=== PATIENT | female | born 1950 | race Caucasian/White ===

== ENCOUNTER 2021-07-27 09:28 | Outpatient (CLI) | payer MEDICARE | END 2021-07-27 09:29 | disposition home or self-care (01) | LOC: CSHMAMMO 09:28 | PROVIDERS: ATTEND Advanced Practice Midwife | DX: N64.52 Nipple discharge (principal) | CPT/HCPCS: 77066; G0279 ==

== ENCOUNTER 2022-03-24 10:08 | Outpatient (CLI) | payer MEDICARE ==
[2022-03-24 11:33] LABS: Hemoglobin 13.3 g/dL (12.0-15.5); Mean Corpuscular HGB CONC 33.2 g/dL (32.0-36.0); Mean Corpuscular Hemoglobin 32.3 pg (27.0-33.0); Mean Corpuscular Volume 97.3 fl (81.6-98.3); Platelet Count 443 10x3/uL (150-450); RBC Distribution Width 12.5 % (11.5-14.5); Red Blood Cell (RBC) Count 4.12 10x6/uL (3.90-5.03); White Blood Cell (WBC) Count 6.4 10x3/uL (3.5-10.5)
[2022-03-24 11:48] LABS: Anion Gap 13 mmol/L (10-20); BUN (Urea Nitrogen) 13 mg/dL (9.8-20.1); Calc. Creatinine Clearance 0 mL/min (70-130); Carbon Dioxide 29 mmol/L (23-31); Chloride 104 mmol/L (98-107); Estimated GFR 82; Glucose 93 mg/dL (80-115); Sodium 141 mmol/L (136-145)
== END 2022-03-24 10:09 | disposition home or self-care (01) ==
LOC: CSHLAB 10:08
PROVIDERS: ATTEND Otolaryngology Otolaryngic Allergy
DX: Z01.818 Encounter for other preprocedural examination (principal); Z20.822 Contact with and (suspected) exposure to COVID-19; G47.33 Obstructive sleep apnea (adult) (pediatric)
CPT/HCPCS: 80048; 85027; 87811; 93005; 93010

== ENCOUNTER 2022-03-29 05:58 | Day surgery (SDC) | payer MEDICARE ==
[2022-03-28 10:31] VITALS: BMI 29.9
[2022-03-29] MEDS ORDERED: Lidocaine 1% MPF 2 ML VIAL ONE (07:02)
[2022-03-29] MEDS ORDERED: PROPOFOL 20 ML ONE (07:53)
== END 2022-03-29 09:05 | disposition home or self-care (01) ==
LOC: CSHSDC 05:58
PROVIDERS: ATTEND Otolaryngology Otolaryngic Allergy
PROC: 4A1ZXQZ Monitoring of Sleep, External Approach (ICD-10-PCS; principal; 2022-03-29)
DX: G47.33 Obstructive sleep apnea (adult) (pediatric) (principal); Z79.899 Other long term (current) drug therapy; Z88.8 Allergy status to other drugs, medicaments and biological substances; Z20.822 Contact with and (suspected) exposure to COVID-19
CPT/HCPCS: J2704

== ENCOUNTER 2022-04-21 10:36 | Outpatient (CLI) | payer MEDICARE | END 2022-04-21 10:37 | disposition home or self-care (01) | LOC: CSHLAB 10:36 | PROVIDERS: ATTEND Otolaryngology Otolaryngic Allergy | DX: Z20.822 Contact with and (suspected) exposure to COVID-19 (principal); G47.33 Obstructive sleep apnea (adult) (pediatric) | CPT/HCPCS: 87811 ==

== ENCOUNTER 2022-04-26 07:33 | Day surgery (SDC) | payer MEDICARE ==
[2022-04-22 16:09] VITALS: BMI 29.9
[2022-04-26] MEDS ORDERED: Lidocaine 1% MPF 2 ML VIAL ONE (08:40)
[2022-04-26] MEDS ORDERED: Dexamethasone 20 MG/5 ML VIAL ONE (09:05)
[2022-04-26] MEDS ORDERED: Rocuronium Bromide 10 MG/ML (10ML VIAL) ONE (09:05)
[2022-04-26] MEDS ORDERED: Midazolam HCl 2 mg/2 ml Vial ONE (09:05)
[2022-04-26] MEDS ORDERED: Fentanyl 250 MCG/5 ML VIAL ONE (09:05)
[2022-04-26] MEDS ORDERED: Lidocaine 1% PF 5 ML VIAL ONE (09:05)
[2022-04-26] MEDS ORDERED: Ondansetron PF 4 MG/2 ML Vial ONE (09:05)
[2022-04-26] MEDS ORDERED: PROPOFOL 20 ML ONE ×2 (09:05→09:49)
[2022-04-26] MEDS ORDERED: EPINEPHrine 1 MG/ML AMP ONE (09:10)
[2022-04-26] MEDS ORDERED: CEFAZOLIN 1 GM VIAL ONE ×2 (09:10→09:45)
[2022-04-26] MEDS ORDERED: Lidocaine 1% (PF) 30 ML VIAL ONE (09:10)
[2022-04-26] MEDS ORDERED: EPINEPHrine 1 MG/10 ML Abboject SYRINGE ONE (10:16)
[2022-04-26] MEDS ORDERED: Meperidine HCl/PF 25 MG/ML VIAL ONE (12:07)
[2022-04-26] MEDS ORDERED: Fentanyl 100 MCG/2 ML VIAL ONE (12:34)
[2022-04-26] MEDS ORDERED: HYDROcodone/Acetaminophen 5/325 mg Tablet ONE (13:27)
[2022-04-26] MEDS ORDERED: tiZANidine HCl 4 MG TAB PO PRN (14:52)
[2022-04-26] MEDS ORDERED: Promethazine HCl 25 MG/ML VIAL ONE (14:58)
== END 2022-04-26 16:26 | disposition home or self-care (01) ==
LOC: CSHSDC 07:33
PROVIDERS: ATTEND Otolaryngology Otolaryngic Allergy
PROC: 0JH60BZ Insertion of Single Array Stimulator Generator into Chest Subcutaneous Tissue and Fascia, Open Approach (ICD-10-PCS; principal; 2022-04-26)
PROC: 00HE0MZ Insertion of Neurostimulator Lead into Cranial Nerve, Open Approach (ICD-10-PCS; 2022-04-26)
DX: G47.33 Obstructive sleep apnea (adult) (pediatric) (principal); Z79.899 Other long term (current) drug therapy; Z20.822 Contact with and (suspected) exposure to COVID-19
CPT/HCPCS: C1820; C1898; J0171; J0690; J1100; J2001; J2175; J2250; J2405; J2550; J2704; J3010